=== PATIENT | female | born 1950 | race American Indian/Alaskan Native ===

== ENCOUNTER 2020-08-09 07:41 | Outpatient (CLI) | payer MEDICARE, OTHER ==
[2020-08-09 08:17] LABS: Blood Urea Nitrogen 15 mg/dL (7-17)
--- NOTE | 2020-08-09 09:02 | Cat Scan Report ---
CT CHEST WITH CONTRAST INDICATION / CLINICAL INFORMATION: THORACIC AORTIC ANEURYSM W/O RUPTURE. TECHNIQUE: Axial CT images were obtained through the chest after 100 mL IV contrast. All CT scans at this locati on are performed using CT dose reduction for ALARA by means of automated exposure control. COMPARISON: None available. FINDINGS: HEART: No significant abnormality. THORACIC AORTA: Aneurysm of the ascending thoracic aorta measuring 5.0 cm in greatest no aneurysm of the descending thoracic aorta. Diameter. MEDIASTINUM and BENEDICTO: No significant abnormality. LUNGS: No acute air space or interstitial disease. PLEURA: No significant pleural effusion. No pneumothorax. ADDITIONAL FINDINGS: There is severe left axillary adenopathy with one of the largest nodes measuring 1.5 cm in short axis.. UPPER ABDOMEN: No significant abnormality. SKELETAL SYSTEM: No significant abnormality. IMPRESSION: 1. Ascending thoracic aortic aneurysm measuring 5.0 cm in greatest diameter.. 2. Abnormal left axillary adenopathy with the largest node measuring 1.5 cm in short axis. Signer Name: Gamal Cerda MD Signed: 08/09/2020 8:58 AM Workstation Name: [id number]
== END 2020-08-09 07:42 | disposition home or self-care (01) ==
LOC: LAB 07:41 → CT 07:41 → LAB 07:42
PROVIDERS: ATTEND Surgery Vascular Surgery
DX: I71.2 Thoracic aortic aneurysm, without rupture (principal); I71.4 Abdominal aortic aneurysm, without rupture; R59.0 Localized enlarged lymph nodes
CPT/HCPCS: 36415; 71260; 82565; 84520; Q9967

== ENCOUNTER 2021-05-15 09:59 | Outpatient (CLI) | payer MEDICARE ==
[2021-05-15 10:52] LABS: ABG Base Excess -0.5 mmol/L (-2.0-3.0); ABG HCO3 24.2 mmol/L (20.0-26.0); ABG Methemoglobin 0.5 % (0.0-1.5); ABG Oxygen Saturation 96.9 % (95.0-99.0); ABG PCO2 39.6 mm Hg; ABG PH 7.404 pH Units (7.350-7.450); ABG PO2 87.7 mm Hg (80.0-90.0)
== END 2021-05-15 10:00 | disposition home or self-care (01) ==
LOC: LAB 09:59
PROVIDERS: ATTEND Internal Medicine
DX: I25.9 Chronic ischemic heart disease, unspecified (principal); I71.9 Aortic aneurysm of unspecified site, without rupture; I10 Essential (primary) hypertension; E55.9 Vitamin D deficiency, unspecified; G47.00 Insomnia, unspecified; Z87.09 Personal history of other diseases of the respiratory system
CPT/HCPCS: 36415; 82785; 82803; 84436; 84443; 84480